=== PATIENT | male | born 1970 | race Caucasian/White ===

== ENCOUNTER 2017-11-29 20:34 | Emergency (ER) | payer BC ==
[2017-11-29 20:35] VITALS: BMI 29.2
[2017-11-29 21:02] VITALS: BP 146/80; PULSE 75; RESP 16; TEMP 98.3; O2SAT 97
--- NOTE | 2017-11-29 21:21 | ED PDOC ---
HPI: Headache Time Seen by Provider: 11/29/17 21:06 Chief Complaint (Nursing): Headache Chief Complaint (Provider): headache History Per: Patient History/Exam Limitations: no limitations Onset/Duration Of Symptoms: Days (3), Waxing/Waning Current Symptoms Are (Timing): Still Present Quality: "Pain" Preceeding Symptoms: None Associated Symptoms: denies: Photophobia, Blurred Vision, Nausea, Vomiting, Extremity Weakness Additional History Per: Patient Additional Complaint(s): 46 y/o male presents with intermittent right-sided headache x 3 days. Patient states pain now spreading to left side, no relief with 2 aspirin tablets taken yesterday. Denies fever, dizziness, extremity numbness/weakness, vision changes , photophobia, nausea/vomiting, chest pain, shortness of breath, palpitations. Patient admits to similar headache years ago and was told by his doctor that it could be related to his blood pressure. Past Medical History Reviewed: Historical Data, Nursing Documentation, Vital Signs Vital Signs: Last Vital Signs Temp 98.3 F 11/29/17 20:58 Pulse 75 11/29/17 20:58 Resp 16 11/29/17 20:58 BP 146/80 11/29/17 20:58 Pulse Ox 97 11/29/17 20:58 - Medical History PMH: Diabetes, HTN, Hypercholesterolemia Denies: Depression - Surgical History Surgical History: Appendectomy - Family History Family History: States: Diabetes - Home Medications Home Medications: Ambulatory Orders Medication Instructions Recorded Atorvastatin Calcium [Lipitor] 80 mg PO DAILY 08/19/12 Atorvastatin Calcium [Lipitor] 40 mg PO DAILY 12/11/13 Ezetimibe [Zetia] 10 mg PO DAILY 12/11/13 Fenofibric Acid (Choline) 135 mg PO DAILY 12/11/13 [Trilipix] Hydrochlorothiazide/Triamter PO DAILY 12/11/13 [Triamterene-Hydrochlorothiazide 25 mg-37.5 mg] Omeprazole 40 mg PO DAILY 12/11/13 Docusate Sodium [Colace] 100 mg PO BID #20 ml 12/12/13 Tramadol HCl [Ultram] 50 mg PO TID #20 tab 12/12/13 Docusate [Colace] 100 mg PO BID PRN #20 cap 02/19/16 traMADol [Ultram] 50 mg PO Q6 PRN #16 tab 02/19/16 Dicyclomine [Bentyl] 20 mg PO BID PRN #30 tab 06/09/16 traMADol [Ultram] 25 mg PO TID PRN #15 tab 06/09/16 Naproxen [Naprosyn] 500 mg PO Q12 PRN #20 tablet 11/29/17 - Allergies Allergies/Adverse Reactions: Allergies Allergy/AdvReac Type Severity Reaction Status Date / Time No Known Allergies Allergy Verified 11/29/17 20:58 Review of Systems ROS Statement: Except As Marked, All Systems Reviewed And Found Negative Neurological: Positive for: Headache Physical Exam - Reviewed Nursing Documentation Reviewed: Yes Vital Signs Reviewed: Yes - Physical Exam Appears: Positive for: Well, Non-toxic, No Acute Distress Head Exam: Positive for: ATRAUMATIC, NORMAL INSPECTION, NORMOCEPHALIC Skin: Positive for: Normal Color Eye Exam: Positive for: Normal appearance, EOMI, PERRL ENT: Positive for: Normal ENT Inspection Cardiovascular/Chest: Positive for: Regular Rate, Rhythm Respiratory: Positive for: Normal Breath Sounds Gastrointestinal/Abdominal: Positive for: Normal Exam Back: Positive for: Normal Inspection Extremity: Positive for: Normal ROM Neurologic/Psych: Positive for: Alert, Oriented. Negative for: Motor/Sensory Deficits - Laboratory Results Result Diagrams: 11/29/17 21:38 11/29/17 21:38 - ECG O2 Sat by Pulse Oximetry: 97 - Progress ED Course And Treament: labs, CT head, tylenol PO EXAM: CT Head Without Intravenous Contrast EXAM DATE/TIME: 11/29/2017 9:18 PM CLINICAL HISTORY: 46 years old, male; Pain; Headache; Headache not specified TECHNIQUE: Axial computed tomography images of the head/brain without intravenous contrast. All CT scans at this facility use one or more dose reduction techniques, viz.: automated exposure control; ma/kV adjustment per patient size (including targeted exams where dose is matched to indication; i.e. head); or iterative reconstruction technique. Coronal and sagittal reformatted images were created and reviewed. COMPARISON: No relevant prior studies available. FINDINGS: BRAIN: No significant acute abnormality identified. No acute hemorrhage seen within the brain. No acute extra-axial fluid collections visualized. No evidence of significant mass effect within the brain. VENTRICLES: No evidence of significant hydrocephalus. BONES/JOINTS: No acute fractures or other acute bony abnormality noted. SOFT TISSUES: No acute abnormality of the visualized soft tissues is seen. SINUSES: Visualized paranasal sinuses appear clear. MASTOID AIR CELLS: Mastoid air cells appear clear. IMPRESSION: - No acute findings seen within the brain. - See above for remaining findings. On re-eval, patient states headache improved. Patient educated on findings, discharged with rx naproxen Advised follow up PMD 2-3 days Return precautions given Disposition - Clinical Impression Clinical Impression: Headache - Patient ED Disposition Is Patient to be Admitted: No Counseled Patient/Family Regarding: Studies Performed, Diagnosis, Need For Followup, Rx Given - Disposition Disposition: Routine/Home Disposition Time: 22:56 Condition: IMPROVED Prescriptions: Naproxen [Naprosyn] 500 mg PO Q12 PRN #20 tablet PRN Reason: Pain, Moderate (4-7) Instructions: Headache, Adult Forms: [facility] (Tuvaluan) Print Language: BELARUSIAN
[2017-11-29 21:43] LABS: BASO # 0.1 K/uL (0.0-0.2); BASO % 0.9 % (0.0-2.0); EOS # 0.2 K/uL (0.0-0.7); EOS % 2.1 % (0.0-4.0); LYMPH # 3.2 K/uL (1.0-4.3); LYMPH % 37.1 % (20.0-40.0); MEAN CELL VOLUME 86.7 fl (80.0-94.0); MEAN CORPUSCULAR HEMOGLOBIN 29.1 pg (27.0-31.0); MEAN CORPUSCULAR HGB CONC 33.6 g/dL (33.0-37.0); MEAN PLATELET VOLUME 8.4 fl (7.2-11.7); MONO # 0.8 K/uL (0.0-0.8); MONO % 9.2 % (0.0-10.0); NEUT # 4.4 K/uL (1.8-7.0); NEUT % 50.7 % (50.0-75.0); NRBC % 0.2 % (0.0-0.0); RBC 5.15 Mil/uL (4.40-5.90); WHITE BLOOD COUNT 8.8 K/uL (4.8-10.8)
[2017-11-29 21:52] LABS: CALCIUM 9.1 mg/dL (8.4-10.2); GFR AFRICAN-AMERICAN > 60; GFR NON-AFRICAN AMERICAN > 60
[2017-11-29 21:58] LABS: ALBUMIN 4.6 g/dL (3.5-5.0); ALT/SGPT 40 U/L (21-72); AST/SGOT 43 U/L (17-59); BLOOD UREA NITROGEN 17 mg/dl (9-20)
--- NOTE | 2017-11-29 22:43 | CT ---
EXAM: CT Head Without Intravenous Contrast EXAM DATE/TIME: 11/29/2017 9:18 PM CLINICAL HISTORY: 46 years old, male; Pain; Headache; Headache not specified TECHNIQUE: Axial computed tomography images of the head/brain without intravenous contrast. All CT scans at this facility use one or more dose reduction techniques, viz.: automated exposure control; ma/kV adjustment per patient size (including targeted exams where dose is matched to indication; i.e. head); or iterative reconstruction technique. Coronal and sagittal reformatted images were created and reviewed. COMPARISON: No relevant prior studies available. FINDINGS: BRAIN: No significant acute abnormality identified. No acute hemorrhage seen within the brain. No acute extra-axial fluid collections visualized. No evidence of significant mass effect within the brain. VENTRICLES: No evidence of significant hydrocephalus. BONES/JOINTS: No acute fractures or other acute bony abnormality noted. SOFT TISSUES: No acute abnormality of the visualized soft tissues is seen. SINUSES: Visualized paranasal sinuses appear clear. MASTOID AIR CELLS: Mastoid air cells appear clear. IMPRESSION: - No acute findings seen within the brain. - See above for remaining findings.
== END 2017-11-29 23:08 | disposition home or self-care (01) ==
LOC: H.ER 20:34
DX: R51 Headache (principal); E11.9 Type 2 diabetes mellitus without complications; E78.00 Pure hypercholesterolemia, unspecified; I10 Essential (primary) hypertension

== ENCOUNTER 2018-12-19 19:14 | Emergency (ER) | payer BC ==
[2018-12-19 19:14] VITALS: BMI 29.2
[2018-12-19 19:31] VITALS: TEMP 98.6; O2SAT 97
[2018-12-19] MEDS ORDERED: Iohexol 240 (50 ml) PO ONE (20:20)
[2018-12-19] MEDS ORDERED: Iohexol 240 (50 ml) ONE (20:36)
[2018-12-19 20:47] LABS: BASO % 0.6 % (0.0-2.0); EOS # 0.1 K/uL (0.0-0.7); EOS % 1.7 % (0.0-4.0); HEMOGLOBIN 14.2 g/dL (12.0-18.0); LYMPH # 2.9 K/uL (1.0-4.3); LYMPH % 36.9 % (20.0-40.0); MEAN CORPUSCULAR HEMOGLOBIN 28.9 pg (27.0-31.0); MEAN CORPUSCULAR HGB CONC 33.3 g/dL (33.0-37.0); MEAN PLATELET VOLUME 8.6 fl (7.2-11.7); MONO # 0.7 K/uL (0.0-0.8); MONO % 8.4 % (0.0-10.0); NEUT # 4.1 K/uL (1.8-7.0); NEUT % 52.4 % (50.0-75.0); NRBC % 0.1 % (0.0-0.0); RBC 4.91 Mil/uL (4.40-5.90); RED CELL DISTRIBUTION WIDTH 13.7 % (11.5-14.5); WHITE BLOOD COUNT 7.7 K/uL (4.8-10.8)
[2018-12-19 20:55] LABS: ALB/GLOB RATIO 1.4 (1.0-2.1); ALBUMIN 4.7 g/dL (3.5-5.0); BLOOD UREA NITROGEN 17 mg/dl (9-20); CALCIUM 9.2 mg/dL (8.4-10.2); GFR NON-AFRICAN AMERICAN > 60; LIPASE 51 U/L (23-300)
[2018-12-19 20:57] LABS: ALT/SGPT 32 U/L (21-72); AST/SGOT 34 U/L (17-59)
[2018-12-19 21:20] LABS: URINE BILIRUBIN NEGATIVE (NEGATIVE); URINE BLOOD NEGATIVE (NEGATIVE); URINE CLARITY CLEAR (Clear); URINE COLOR YELLOW (YELLOW); URINE GLUCOSE (UA) >=500 mg/dL (NEGATIVE); URINE LEUKOCYTE ESTERASE NEG Leu/uL (Negative); URINE PROTEIN 30 mg/dL (NEGATIVE); URINE UROBILINOGEN 0.2-1.0 mg/dL (0.2-1.0)
--- NOTE | 2018-12-19 21:28 | ED PDOC ---
HPI: Abdomen Time Seen by Provider: 12/19/18 20:05 Chief Complaint (Nursing): Abdominal Pain Chief Complaint (Provider): Abdominal Pain History Per: Patient History/Exam Limitations: no limitations Onset/Duration Of Symptoms: Days (x 2) Outside of [place] travel?: No Current Symptoms Are (Timing): Still Present Location Of Pain/Discomfort: RLQ Quality Of Discomfort: "Pain" Additional Complaint(s): 47 year old male with a history of diabetes presents to the ED for evaluation of right sided abdominal pain beginning 4 days ago intermittently. Pain became constant today. Patient is urinating normally. Last bowel movement was today. Denies nausea, vomiting, diarrhea, fever, dysuria and constipation. PMD: Dr. Robert Rajan Past Medical History Reviewed: Historical Data, Nursing Documentation, Vital Signs Vital Signs: Last Vital Signs Temp 98.6 F 12/19/18 19:26 Pulse 73 12/19/18 19:26 Resp 18 12/19/18 19:26 BP 145/85 12/19/18 19:26 Pulse Ox 97 12/19/18 19:26 Primary Care Provider: Robert Rajan - Medical History PMH: Diabetes, HTN, Hypercholesterolemia Denies: Depression - Surgical History Surgical History: Appendectomy - Family History Family History: States: Diabetes - Home Medications Home Medications: Ambulatory Orders Medication Instructions Recorded Atorvastatin Calcium [Lipitor] 80 mg PO DAILY 08/19/12 Atorvastatin Calcium [Lipitor] 40 mg PO DAILY 12/11/13 Ezetimibe [Zetia] 10 mg PO DAILY 12/11/13 Fenofibric Acid (Choline) 135 mg PO DAILY 12/11/13 [Trilipix] Hydrochlorothiazide/Triamter PO DAILY 12/11/13 [Triamterene-Hydrochlorothiazide 25 mg-37.5 mg] Omeprazole 40 mg PO DAILY 12/11/13 Docusate Sodium [Colace] 100 mg PO BID #20 ml 12/12/13 Tramadol HCl [Ultram] 50 mg PO TID #20 tab 12/12/13 Docusate [Colace] 100 mg PO BID PRN #20 cap 02/19/16 traMADol [Ultram] 50 mg PO Q6 PRN #16 tab 02/19/16 Dicyclomine [Bentyl] 20 mg PO BID PRN #30 tab 06/09/16 traMADol [Ultram] 25 mg PO TID PRN #15 tab 06/09/16 Naproxen [Naprosyn] 500 mg PO Q12 PRN #20 tablet 11/29/17 Ciprofloxacin HCl [Cipro] 500 mg PO BID #14 tablet 12/20/18 - Allergies Allergies/Adverse Reactions: Allergies Allergy/AdvReac Type Severity Reaction Status Date / Time No Known Allergies Allergy Verified 11/29/17 20:58 Review of Systems ROS Statement: Except As Marked, All Systems Reviewed And Found Negative Gastrointestinal: Positive for: Abdominal Pain. Negative for: Nausea, Vomiting, Diarrhea, Constipation Genitourinary Male: Negative for: Dysuria, Frequency, Incontinence Physical Exam - Reviewed Nursing Documentation Reviewed: Yes Vital Signs Reviewed: Yes - Physical Exam Appears: Positive for: Non-toxic, No Acute Distress Head Exam: Positive for: ATRAUMATIC, NORMAL INSPECTION, NORMOCEPHALIC Skin: Positive for: Normal Color, Warm, Dry Eye Exam: Positive for: EOMI, Normal appearance, PERRL Neck: Positive for: Normal, Painless ROM, Supple Cardiovascular/Chest: Positive for: Regular Rate, Rhythm. Negative for: Murmur Respiratory: Positive for: Normal Breath Sounds. Negative for: Wheezing, Res piratory Distress Gastrointestinal/Abdominal: Positive for: Normal Exam, Soft. Negative for: Tenderness, Mass, Distended, Guarding Back: Positive for: Normal Inspection. Negative for: L CVA Tenderness, R CVA Tenderness Extremity: Positive for: Normal ROM. Negative for: Deformity Neurological/Psych: Positive for: Awake, Alert, Normal Tone, Oriented (x 3). Negative for: Motor/Sensory Deficits - Laboratory Results Result Diagrams: 12/19/18 20:39 12/19/18 20:39 Lab Results: Total Bilirubin 0.9 mg/dl (0.2-1.3) 12/19/18 20:39 AST 34 U/L (17-59) 12/19/18 20:39 ALT 32 U/L (21-72) 12/19/18 20:39 Alkaline Phosphatase 101 U/L (38-126) 12/19/18 20:39 Total Protein 8.0 G/DL (6.3-8.2) 12/19/18 20:39 Albumin 4.7 g/dL (3.5-5.0) 05/22/19 20:39 Globulin 3.3 gm/dL (2.2-3.9) 12/19/18 20:39 Albumin/Globulin Ratio 1.4 (1.0-2.1) 12/19/18 20:39 Lipase 51 U/L (23-300) 12/19/18 20:39 - ECG O2 Sat by Pulse Oximetry: 97 (RA) Pulse Ox Interpretation: Normal Medical Decision Making Medical Decision Makin:20 Impression: RLQ abdominal pain Differential diagnoses include but are not limited to: colitis, kidney stones, SBO, less likely stump appendicitis Initial Plan: --CT Abd Pelvis --EKG --BMP --CMP --Lipase --Omnipaque 50 ml PO --UA 2339 CT Abd Pelvis FINDINGS: LUNG BASES: The lung bases appear clear. No pleural effusions are seen. LIVER: Mild hepatomegaly noted. The liver measured 17.3 cm in the midclavicular line. GALLBLADDER AND BILE DUCTS: The gallbladder is partially contracted. No radioopaque gallstones are seen. No biliary ductal dilatation is evident. PANCREAS: Unremarkable. SPLEEN: Unremarkable. ADRENAL GLANDS: Unremarkable. KIDNEYS, URETERS, AND BLADDER: The kidneys appear within normal limits. There is no hydronephrosis or hydroureter. No urinary calculi are seen. The urinary bladder appeared normal in size and configuration. There is again demonstration of mild bladder wall thickening present. Additionally, subtle perivesical stranding is noted. STOMACH AND BOWEL: Unremarkable appearance of the stomach and bowel. No evidence of bowel obstruction. APPENDIX: There is evidence of prior appendectomy. PERITONEUM: No free fluid. No free air. LYMPH NODES: No lymphadenopathy is evident. REPRODUCTIVE: Unremarkable as visualized. VASCULATURE: No evidence of abdominal aortic aneurysm. BONES: No aggressive appearing osseous lesion. No acute osseous pathology evident. There is again evidence of advanced degenerative disc disease at L5-S1. Incidental discovery is made of central-left eccentric herniation of disc density material at L5-S1 thought compatible with chronic HNP. This same finding appears to have been present on the prior study. IMPRESSION: Evidence of cystitis. -- Scribe Attestation: Documented by Ivania Desouza, acting as a scribe for Jitendra Suarez MD. Provider Scribe Attestation: All medical record entries made by the Scribe were at my direction and personally dictated by me. I have reviewed the chart and agree that the record accurately reflects my personal performance of the history, physical exam, medical decision making, and the department course for this patient. I have also personally directed, reviewed, and agree with the discharge instructions and disposition. Disposition - Clinical Impression Clinical Impression: Cystitis, Abdominal pain - Patient ED Disposition Is Patient to be Admitted: No Doctor Will See Patient In The: Office Counseled Patient/Family Regarding: Studies Performed, Diagnosis, Need For Followup - Disposition Referrals: formerly [facility] [Outside] Disposition Time: 00:08 Condition: GOOD Additional Instructions: ALEXIS CAMPOS, thank you for letting us take care of you today. Your provider was Jitendra Suarez MD and you were treated for ABD PAIN. The emergency medical care you received today was directed at your acute symptoms. If you were prescribed any medication, please fill it and take as directed. It may take several days for your symptoms to resolve. Return to the Emergency Department if your symptoms worsen, do not improve, or if you have any other problems. Please contact your doctor or call one of the physicians/clinics you have been referred to that are listed on the Patient Visit Information form that is included in your discharge packet. Bring any paperwork you were given at discharge with you along with any medications you are taking to your follow up visit. Our treatment cannot replace ongoing medical care by a primary care provider outside of the emergency department. Thank you for allowing the [facility] team to be part of your care today. If you had an X-Ray or CT scan: A Radiologist will review the ED reading if any change in treatment is needed we will contact you. If you had a blood, urine, or wound culture: It will take several days for the results, if any change in treatment is needed we will contact you. Prescriptions: Ciprofloxacin HCl [Cipro] 500 mg PO BID #14 tablet Instructions: Interstitial Cystitis (DC) Forms: [employer] (French) - POA Present On Arrival: None
[2018-12-19] MEDS ORDERED: Iohexol 300 100 ML IJ ONE (22:12)
[2018-12-19] MEDS ORDERED: Sodium Chloride 0.9% 50 ML IV ONE (22:12)
[2018-12-19 22:41] VITALS: BP 131/88; PULSE 63; RESP 15
--- NOTE | 2018-12-20 12:49 | CT ---
Date of service: 12/19/2018 PROCEDURE: CT abdomen and pelvis HISTORY: RLQ pain in a patient with history of appendectomy COMPARISON: Comparison made with prior study dated 02/19/2016. TECHNIQUE: Contiguous axial images of the abdomen and pelvis performed following oral and intravenous injection of approximately 100 cc Omnipaque 300 contrast material. Additional 2D sagittal and coronal reformats generated. Radiation dose: Total exam DLP = 907.28 mGy-cm. This CT exam was performed using one or more of the following dose reduction techniques: Automated exposure control, adjustment of the mA and/or kV according to patient size, and/or use of iterative reconstruction technique. FINDINGS: LOWER THORAX: Heart is mildly enlarged.. No significant pericardial effusion. There is a small hiatal hernia. Mild passive/dependent type atelectasis. No effusion or basilar pneumothorax. LIVER: Liver upper limits of normal in size. No gross lesion or ductal dilatation. GALLBLADDER AND BILE DUCTS: Unremarkable. PANCREAS: Unremarkable. No mass. No ductal dilatation. SPLEEN: Unremarkable. No splenomegaly. ADRENALS: Unremarkable. KIDNEYS AND URETERS: Unremarkable. No stone or hydronephrosis. BLADDER: The urinary bladder is incompletely distended with thick-walled appearance in part due to incomplete distention however cystitis or other intrinsic/invasive wall lesion should be excluded. Clinical correlation recommended. REPRODUCTIVE: Prostate gland measures approximately 4.3 cm in transverse dimension. Prostatic calcifications are present. APPENDIX: Postoperative changes of appendectomy BOWEL: Evaluation of the bowel is somewhat limited due to incomplete opacification. The stomach is partially distended with food debris liquid and air. Visualized loops of small bowel exhibit normal contour and caliber. No evidence of acute mechanical small bowel obstruction. Colon appears unremarkable without definitive evidence of mural wall thickening. PERITONEUM: Unremarkable. No fluid collection. No free air. Small fat containing umbilical hernia. LYMPH NODES: Unremarkable. No enlarged lymph nodes. VASCULATURE: Unremarkable. No aortic aneurysm. No aortic atherosclerotic calcification or mural plaque present. BONES: Mild multilevel degenerative spondylosis of the lower thoracic and lumbar spine. OTHER FINDINGS: None. IMPRESSION: Urinary bladder wall thickening likely due to incomplete distention and muscular hypertrophy however cystitis or other intrinsic/invasive wall lesion should be excluded with follow-up studies and laboratory assessment.
--- NOTE | 2018-12-20 17:33 | CARD ---
APPROVED REPORT Date of service: 12/19/2018 EKG Measurement Heart [id number] <Conclusion> Normal sinus rhythm Normal ECG
== END 2018-12-20 00:35 | disposition home or self-care (01) ==
LOC: H.ER 19:14
DX: N30.90 Cystitis, unspecified without hematuria (principal); R10.9 Unspecified abdominal pain; E11.9 Type 2 diabetes mellitus without complications; E78.00 Pure hypercholesterolemia, unspecified; I10 Essential (primary) hypertension; M51.37 Other intervertebral disc degeneration, lumbosacral region; Z90.49 Acquired absence of other specified parts of digestive tract; Z79.899 Other long term (current) drug therapy
CPT/HCPCS: 74177; 80053; 81003; 83690; 85025; 93005; 99283; Q9966; Q9967